=== PATIENT | female | born 1980 | race Caucasian/White ===

== ENCOUNTER 2016-11-30 15:26 | Emergency (ER) | payer OTHER ==
[~2016-11-30 15:26] MED LIST: DOXYCYCLINE150 MG PO; METFORMIN HCL500 M1 PO; PAXIL30 MG PO; PREDNISONE10 MG/DOSE PO; RELAFEN500 MG PO; SYMBICORT INH; SYNTHROID PO; VIBRAMYCIN100 M1 PO; ZOCOR PO
[2016-11-30] MEDS ORDERED: METFORMIN PO (15:31)
[2016-11-30] MEDS ORDERED: PAROXETINE PO (15:32)
[2016-11-30] MEDS ORDERED: NABUMETONE PO (15:32)
[2016-11-30] MEDS ORDERED: SIMVASTATIN PO (15:32)
[2016-11-30] MEDS ORDERED: LISINOPRIL PO (15:33)
[2016-11-30] MEDS ORDERED: GLIPIZIDE PO (15:33)
[2016-11-30] MEDS ORDERED: LEVOTHYROXINE PO (15:33)
== END 2016-11-30 16:45 | disposition home or self-care (01) ==
LOC: SED 15:26
DX: L03.314 Cellulitis of groin (principal); L03.112 Cellulitis of left axilla; E11.9 Type 2 diabetes mellitus without complications; I10 Essential (primary) hypertension; E78.5 Hyperlipidemia, unspecified; F17.210 Nicotine dependence, cigarettes, uncomplicated; Z79.82 Long term (current) use of aspirin; Z79.899 Other long term (current) drug therapy; Z88.6 Allergy status to analgesic agent
CPT/HCPCS: 99283